=== PATIENT | female | born 1975 | race Caucasian/White ===

== ENCOUNTER 2020-08-03 07:53 | Emergency (ER) | payer BC ==
[~2020-08-03 07:53] MED LIST: PREDNISONE20 MG PO
[2020-08-03 08:50] LABS: HEMOGLOBIN 14.9 gm/dl (12.3-15.3); RED BLOOD COUNT 4.75 M/UL (4.00-5.10); WHITE BLOOD COUNT 6.3 K/UL (4.5-11.0)
[2020-08-03 09:11] LABS: BUN/CREATININE RATIO 15 (0-10)
== END 2020-08-03 10:35 | disposition home or self-care (01) ==
LOC: ER1 07:53
PROVIDERS: Physician Assistant
DX: D25.9 Leiomyoma of uterus, unspecified (principal); Z90.49 Acquired absence of other specified parts of digestive tract
CPT/HCPCS: 80053; 81001; 84703; 85025; 96374; 96375; 99284; J1885; J2405; Q9967